=== PATIENT | female | born 1965 | race Caucasian/White ===

== ENCOUNTER → 2020-05-17 | Emergency (ER) | payer OTHER ==
[~2020-05-17] VITALS: Ht 157.5 cm; Wt 54.4 kg
[2020-05-17 17:48] VITALS: BP 111/71
--- NOTE | 2020-05-17 18:02 | Emergency Room Report ---
History of Present Illness General Chief Complaint: Abdominal Pain Source: Patient, EMS Present Illness HPI Patient is a 54-year-old female presents for increased abdominal pain for the past 4 months. She states that she needs her colostomy bag change. Had previous colostomy placed at [facility]. Reports of any several months of abdominal pain. Patient states that she needs water but cannot state what other medical concerns she has. Allergies: Coded Allergies: No Known Allergies (Unverified , 05/17/20) COVID-19 Screening Contact w/high risk pt: No Experienced COVID-19 symptoms?: No COVID-19 Testing performed [employer]ING [employer]: No Patient History Reviewed Nursing Documentation: PMH: Agreed; PSxH: Agreed Review of Systems All Other Systems: negative except mentioned in HPI Physical Exam Vital Signs Date Time Temp Pulse Resp B/P (MAP) Pulse Ox O2 Delivery O2 Flow Rate FiO2 05/17/20 17:48 98.2 110 18 111/71 (84) 97 Room Air Sp02 EP Interpretation: reviewed, normal General Appearance: normal inspection, alert, GCS 15, non-toxic, Chronically Ill Head: atraumatic ENT: normal ENT inspection, hearing grossly normal, normal voice Neck: normal inspection, full range of motion, supple, no bony tend Respiratory: normal inspection, lungs clear, normal breath sounds, no respiratory distress, no retraction, no wheezing Cardiovascular #1: normal peripheral pulses, regular rate, rhythm, no edema Gastrointestinal: normal inspection, soft, no guarding, no hernia, other - Abdominal colostomy bag, brown stool Genitourinary: no CVA tenderness Musculoskeletal: normal inspection, back normal, normal range of motion Neurologic: alert, motor strength/tone normal, responsive, speech normal, normal inspection Psychiatric: normal inspection, judgement/insight normal, mood/affect normal Medical Decision Making Diagnostic Impression: Primary Impression: Colostomy in place ER Course Presented for colostomy bag change. Differential diagnosis include was not limited to bowel obstruction, infection, substance abuse among others. Laboratory testing was ordered however patient did not want to remain in the emergency department and have any testing performed. She stated she only wanted water. Patient eloped prior to having a colostomy change. Patient did not appear to have any acute medical condition at the time of eloping. This medical record is generated with [employer] slipcover cutter software. There may be some slipcover cutter discrepancies related to use of this software Last Vital Signs Date Time Temp Pulse Resp B/P (MAP) Pulse Ox O2 Delivery O2 Flow Rate FiO2 05/17/20 17:48 98.2 110 18 111/71 (84) 97 Room Air Status: improved Disposition: ELOPED Condition: Stable Bertram Wheatley MD May 17, 2020 18:02
== END | disposition left against medical advice (07) ==
LOC: EDBD 17:47 → EMR 18:54
DX: Z43.3 Encounter for attention to colostomy (principal); R10.9 Unspecified abdominal pain
CPT/HCPCS: 80053; 81003; 83690; 84484; 85025; 85610; 85730; 99281; G0480